=== PATIENT | female | born 1970 | race Caucasian/White ===

== ENCOUNTER 2018-09-23 07:39 | Day surgery (SDC) | payer BC ==
[2018-09-20 14:42] VITALS: BMI 41.1
[2018-09-23] MEDS ORDERED: ONDANSETRON 4 MG/2 ML VIAL ONE ×2 (10:08→11:32)
[2018-09-23] MEDS ORDERED: SUCCINYLCHOLINE CHLORIDE 200 MG/10 ML VIAL ONE (10:08)
[2018-09-23] MEDS ORDERED: LIDOCAINE HCL/PF 2% SDV 5ML VIAL ONE (10:08)
[2018-09-23] MEDS ORDERED: MIDAZOLAM HCL 2 MG/2 ML SINGLE DOSE VIAL ONE (10:08)
[2018-09-23] MEDS ORDERED: PROPOFOL 20 ML ONE (10:08)
[2018-09-23] MEDS ORDERED: DEXAMETHASONE SOD PHOSPHATE 4 MG/1 ML VIAL ONE (10:08)
[2018-09-23] MEDS ORDERED: EPINEPHrine 1:1,000 1 MG/1 ML - 30ML VIAL (INJECTION) ONE (10:15)
[2018-09-23] MEDS ORDERED: BUPIVACAINE HCL/PF 2.5 MG/ML - 30 ML VIAL IJ ONE (10:15)
[2018-09-23] MEDS ORDERED: ceFAZolin SODIUM 1 GM VIAL ONE (10:39)
[2018-09-23] MEDS ORDERED: ONDANSETRON 4 MG/2 ML VIAL IVPUSH PRN (10:51)
[2018-09-23] MEDS ORDERED: oxyCODONE HCL 5 MG TABLET PO PRN ×2 (10:51)
[2018-09-23] MEDS ORDERED: LACTATED RINGERS SOLUTION 1,000 ML IV SCH (11:00)
[2018-09-23] MEDS ORDERED: BUPIVACAINE HCL/PF 0.25% (2.5MG/ML) 10 ML VIAL IJ ONE (11:10)
[2018-09-23] MEDS ORDERED: LABETALOL HCL 5 MG/1 ML (100MG/20 ML VIAL) ONE (11:44)
[2018-09-23] MEDS ORDERED: LABETALOL HCL 5 MG/1 ML (100MG/20 ML VIAL) IVPUSH ONE ×2 (12:07)
[2018-09-23 12:47] VITALS: TEMP 98
[2018-09-23] MEDS ORDERED: oxyCODONE HCL 5 MG TABLET ONE (12:49)
[2018-09-23 13:52] VITALS: BP 148/85; PULSE 72
--- NOTE | 2018-09-23 14:07 | OP ---
DATE OF OPERATION: 09/23/2018 LOCATION: [facility] SURGEON: Ifeanyi Alvarado MD WOOLING MACHINE OPERATOR: ANGELA Cat PREOPERATIVE DIAGNOSES: 1. Right knee medial lateral meniscal tear. 2. Right knee cartilage injury. 3. Right knee synovitis. POSTOPERATIVE DIAGNOSES: 1. Right knee medial lateral meniscal tear. 2. Right knee cartilage injury. 3. Right knee synovitis. PROCEDURE: 1. Right knee arthroscopy with partial meniscectomy, medial lateral meniscus. CPT code 65691. 2. Right knee arthroscopy with chondroplasty and abrasoplasty. CPT code 70007. 3. Right knee arthroscopy with synovectomy. CPT code 61353. FINDINGS: 1. Medial meniscus body and posterior horn tear lateral meniscus with medial plica. 2. There are 4-cm x 2-cm medial femoral condyle grade 4 changes, medial portion of medial femoral condyle, with 2-cm x 2-cm grade 4 changes, lateral portion of medial femoral condyle. 3. ACL and PCL intact. 4. Minor grade 1-2 changes, lateral tibial plateau. 5. grade 2 cartilage changes in the anterior patellofemoral trochlea and minor grade 4 changes anterior plica insertion, anterior patellofemoral trochlea. PROCEDURE: Informed consent was obtained. The patient came to the operating room where the lower extremity was prepped and draped in a sterile fashion. A tourniquet was placed on the upper thigh but not inflated. Using standard arthroscopic technique, a lateral incision and portal was made to allow for introduction of the camera into the suprapatellar bursa. This was then taken to the medial joint line, where under direct visualization, a medial incision and portal was made. Excessive synovium noted in the medial, lateral and patellofemoral and notch area was removed by an upbiter, shaver and Bovie cautery. This was found to bring in inflammatory tissue into the joint surface, a source of pain and dysfunction. Probing of the medial and lateral meniscus found tears, as described in the findings. These were removed with the upbiter and shaver and taken back to a stable rim. Grade 2 to 3 degenerative changes were treated with a chondroplasty, removing all flaking surfaces with low-setting Bovie along the periphery to prevent further flaking. Grade 4 changes, as noted, were treated with an abrasoplasty, creating a bleeding surface at the bone/cartilage interface. Aggressive debridement with shaver/felicitas created bleeding surface. Micro fracture also done when indicated in findings. All areas of the knee were once again reexamined. The knee was then drained and a single suture was placed in all portals. A sterile dressing was placed and the patient was transferred to the recovery room without complication. The PA listed above was present and assisted at surgery. His presence was absolutely medically necessary for the completion of the procedure. He helped hold the arthroscopy, pass instruments (and implants when indicated) and the procedure could not have been completed without his assistance. IFEANYI ALVARADO M.D. [id number]
--- NOTE | 2018-09-27 14:34 | PATH ---
Surgical Pathology Report Patient Name: VITALY SALAZAR [facility]. Rec. #: [id number] /Age/Gender: 1970 (Age: 48) / F Account: [id number] Location: [facility] AMBULATORY Taken: 09/23/2018 Received: 09/23/2018 Reported: 09/27/2018 Physicians: Ifeanyi Hernandez M.D. Specimen(s) Received RIGHT KNEE SHAVINGS Clinical History Internal derangement right knee Final Diagnosis KNEE SHAVINGS, RIGHT, ARTHROSCOPY: FRAGMENTS OF CARTILAGE, DENSE FIBROCONNECTIVE TISSUE, ADIPOSE TISSUE, AND SYNOVIUM. Electronically Signed Sarah Rodriguez M.D. Gross Description Received in formalin, labeled "right knee shavings," is a 4.0 x 3.5 x 0.3 cm aggregate of francisco-yellow soft tissue fragments. A international representative portion is submitted in one cassette. /09/26/201809/26/2018
== END 2018-09-23 13:52 | disposition home or self-care (01) ==
LOC: FASU 07:39
PROVIDERS: ATTEND Orthopaedic Surgery
PROC: 0SBC4ZZ Excision of Right Knee Joint, Percutaneous Endoscopic Approach (ICD-10-PCS; 2018-09-23)
PROC: 0SBC4ZZ Excision of Right Knee Joint, Percutaneous Endoscopic Approach (ICD-10-PCS; 2018-09-23)
PROC: 0SBC4ZZ Excision of Right Knee Joint, Percutaneous Endoscopic Approach (ICD-10-PCS; principal; 2018-09-23 09:30)
DX: S83.241A Other tear of medial meniscus, current injury, right knee, initial encounter (principal); S83.281A Other tear of lateral meniscus, current injury, right knee, initial encounter; S83.8X1A Sprain of other specified parts of right knee, initial encounter; M65.861 Other synovitis and tenosynovitis, right lower leg; X58.XXXA Exposure to other specified factors, initial encounter; Y93.9 Activity, unspecified; Y92.9 Unspecified place or not applicable
CPT/HCPCS: 84703; 88304-TC; 94760